=== PATIENT | male | born 1980 | race Caucasian/White ===

== ENCOUNTER 2018-08-30 08:27 | Emergency (ER) | payer SELFPAY ==
[2018-08-30 08:45] LABS: #Basophils 0.1 thou/uL (0.0-0.2); #Eosinphils 0.4 thou/uL (0.0-0.7); #Lymphocytes 3.2 thou/uL (1.20-3.40); #Monocytes 1.1 thou/uL (0.11-0.59); #Neutrophils 6.8 thou/uL (1.40-6.50); %Basophils 0.9 % (0.0-1.0); %Eosinophils 3.1 % (0.0-10.0); %Lymphocytes 27.8 % (21.0-51.0); %Monocytes 9.6 % (0.0-10.0); %Neutrophils 58.6 % (42.0-75.0); Hemoglobin 15.6 g/dL (14.0-18.0); Mean Corpuscular HGB CONC 33.2 g/dL (32.0-36.0); Mean Corpuscular Volume 93.3 fL (78.0-98.0); Mean Platelet Volume 6.8 fL (7.4-10.4); Platelet Count 368 thou/uL (130-400); RBC Distribution Width 12.1 % (11.5-14.5); Red Blood Cell (RBC) Count 5.04 mill/uL (4.70-6.10); White Blood Cell (WBC) Count 11.5 thou/uL (4.8-10.8)
[2018-08-30 09:09] LABS: ALT (SGPT) 27 U/L (8-55); AST (SGOT) 32 U/L (5-34); Albumin 4.3 g/dL (3.5-5.0); Alkaline Phosphatase 77 U/L (40-150); Anion Gap 12 mmol/L (10-20); BUN (Urea Nitrogen) 19 mg/dL (8.9-20.6); Bilirubin, Total 0.7 mg/dL (0.2-1.2); CK (CPK) 288 U/L (30-200); Calc. Creatinine Clearance 0 mL/min (70-130); Calcium 9.7 mg/dL (7.8-10.44); Carbon Dioxide 25 mmol/L (22-29); Chloride 102 mmol/L (98-107); Estimated GFR-MDRD Greater than 90; Globulin 3.1 g/dL (2.4-3.5); Glucose 111 mg/dL (70-105); Lipase 20 U/L (8-78); Potassium 4.1 mmol/L (3.5-5.1); Protein, Total 7.4 g/dL (6.0-8.3); Sodium 135 mmol/L (136-145)
--- NOTE | 2018-08-30 09:21 | RAD ---
EXAM: Single view of the chest HISTORY: Chest pain COMPARISON: None FINDINGS: Single view of the chest shows a normal sized cardiomediastinal silhouette. There is no bernie dence of consolidation, mass, or pleural effusion. The bones are unremarkable. IMPRESSION: No evidence of acute cardiopulmonary disease
[2018-08-30] MEDS ORDERED: Ibuprofen 800 MG TAB ONE (10:17)
[2018-08-30] MEDS ORDERED: Acetaminophen 325 MG TAB ONE (10:17)
--- NOTE | 2018-08-30 10:24 | ULT ---
US Gallbladder RUQ: 08/30/2018 9:32 AM CLINICAL HISTORY: Epigastric abdominal pain. STUDY: Limited right upper quadrant ultrasound of abdomen. COMPARISON: None. FINDINGS: Liver: Size: Normal. Echogenicity: Hyperechoic consistent with hepatic steatosis. Contour: Smooth. Mass: None. Bile ducts: No intrahepatic or extrahepatic biliary dilatation. Common bile duct measures 4 mm. Gallbladder: Cholelithiasis. Pancreas: Head and body appear normal; tail obscured by bowel gas. Right kidney: No pelvicalyceal dilatation. Right kidney measuring 9.7 cm in length. IMPRESSION: 1. Cholelithiasis 2. Fatty liver
[2018-08-30] MEDS ORDERED: Morphine 4 MG/ML VIAL ONE (11:18)
[2018-08-30] MEDS ORDERED: Ondansetron ODT 4 MG TAB ONE (11:19)
== END 2018-08-30 12:54 | disposition home or self-care (01) ==
LOC: ERS 08:27
DX: K80.70 Calculus of gallbladder and bile duct without cholecystitis without obstruction (principal); F17.210 Nicotine dependence, cigarettes, uncomplicated
CPT/HCPCS: 36415; 71045; 76705; 80053; 82550; 83690; 84484; 85025; 93005; 94760; 96374; J2270; Q0162

== ENCOUNTER 2020-08-05 08:18 | Emergency (ER) | payer SELFPAY ==
[2020-08-05] MEDS ORDERED: Dexamethasone 4 MG TAB ONE (09:34)
[2020-08-05] MEDS ORDERED: Ketorolac Tromethamine 30 MG/ML VIAL ONE (09:34)
== END 2020-08-05 10:00 | disposition home or self-care (01) ==
LOC: ERS 08:18
DX: J02.9 Acute pharyngitis, unspecified (principal); F17.210 Nicotine dependence, cigarettes, uncomplicated
CPT/HCPCS: 96372; 99282; J1885; J8540

== ENCOUNTER 2020-12-21 15:48 | Emergency (ER) | payer BC, SELFPAY ==
[2020-12-21] MEDS ORDERED: Ketorolac Tromethamine 30 MG/ML VIAL ONE (17:34)
== END 2020-12-21 18:15 | disposition home or self-care (01) ==
LOC: ERS 15:48
DX: S22.32XA Fracture of one rib, left side, initial encounter for closed fracture (principal); F17.210 Nicotine dependence, cigarettes, uncomplicated
CPT/HCPCS: 71045; 94799; 96372; J1885

== ENCOUNTER 2021-03-24 23:58 | Emergency (ER) | payer BC | END 2021-03-24 23:59 | disposition home or self-care (01) | LOC: ERS 23:58 | DX: J01.90 Acute sinusitis, unspecified (principal); F17.210 Nicotine dependence, cigarettes, uncomplicated | CPT/HCPCS: 99283 ==

== ENCOUNTER 2021-07-02 13:36 | Emergency (ER) | payer BC | END 2021-07-02 14:37 | disposition home or self-care (01) | LOC: ERS 13:36 | DX: H65.92 Unspecified nonsuppurative otitis media, left ear (principal); L01.00 Impetigo, unspecified; F17.210 Nicotine dependence, cigarettes, uncomplicated | CPT/HCPCS: 99282 ==